=== PATIENT | female | born 1975 | race African-American/Black ===

== ENCOUNTER 2017-04-19 16:27 | Emergency (ER) | payer OTHER ==
[~2017-04-19] VITALS: Ht 160 cm; Wt 44.5 kg
[~2017-04-19 16:27] MED LIST: FLEXERIL PO; IBUPROFEN 800800 M1 PO; IRON325 PO; NAPROSYN500 MG PO; NOHOMEMEDICATIONS; NORCO 5-325 TA1 EACH PO; WOMEN'S DAILY1 EAC1 PO; ZOFRAN ODT4 MG PO
[2017-04-19 17:18] LABS: URINE BILIRUBIN NEGATIVE (Negative); URINE BLOOD TRACE (Negative); URINE COLOR YELLOW; URINE GLUCOSE-RANDOM* NEGATIVE (Negative); URINE KETONES TRACE (Negative); URINE NITRITE NEGATIVE (Negative); URINE PROTEIN (DIPSTICK) NEGATIVE (Negative); URINE SPECIFIC GRAVITY >= 1.030 (1.003-1.035); URINE UROBILINOGEN 0.2 E.U./dl (0.2-1.0)
[2017-04-19 17:27] LABS: HEMATOCRIT 23.8 % (37.0-47.0); HEMOGLOBIN 7.4 gm/dL (12.0-15.0); MANUAL DIFF YES; MCH 20.7 pg (26.0-34.0); MCHC 31.1 g/dL (28.0-37.0); MCV 66.5 fL (80.0-100.0); PLATELET COUNT 213 thou/uL (150-400); RBC 3.58 mil/uL (4.20-5.00); RDW 18.9 % (10.5-14.5); WBC 4.1 thou/uL (4.0-11.0)
[2017-04-19 17:38] LABS: CALCIUM 8.8 mg/dL (8.5-10.1); CREATININE 0.7 mg/dL (0.6-1.0); POTASSIUM 3.5 mmol/L (3.5-5.1)
[2017-04-19 17:44] LABS: ALBUMIN 3.5 g/dL (3.4-5.0); DIRECT BILIRUBIN 0.1 mg/dL (<0.1-0.3); TOTAL BILIRUBIN 0.6 mg/dL (<0.1-1.0); TOTAL PROTEIN 7.7 g/dL (6.4-8.2)
[2017-04-19 18:19] LABS: ABSOLUTE NEUTROPHILS 2.4 thou/uL (1.4-8.2); TOTAL CELL COUNT 100
[2017-04-19 18:20] LABS: ANISOCYTOSIS 2+; HYPOCHROMASIA 3+; MICROCYTES 2+; SCHISTOCYTES FEW
[2017-04-19] MEDS ORDERED: NORCO 5-325 TA1 EACH PO (19:12)
== END 2017-04-19 19:38 | disposition home or self-care (01) ==
LOC: ER 16:27
PROVIDERS: Emergency Medicine
DX: N83.202 Unspecified ovarian cyst, left side (principal); D50.9 Iron deficiency anemia, unspecified; G43.909 Migraine, unspecified, not intractable, without status migrainosus; Z98.890 Other specified postprocedural states

== ENCOUNTER 2021-11-19 01:24 | Emergency (ER) | payer OTHER ==
[~2021-11-19] VITALS: Ht 160 cm; Wt 56.7 kg
[2021-11-19] MEDS ORDERED: PENICILLIN VK500 M1 PO (02:40)
[2021-11-19] MEDS ORDERED: APAP W/CODEINE1 TA2 PO (02:40)
[2021-11-19 04:04] VITALS: BP 138/74
== END 2021-11-19 04:08 | disposition home or self-care (01) ==
LOC: ER 01:24
DX: K04.7 Periapical abscess without sinus (principal); H92.01 Otalgia, right ear; G43.909 Migraine, unspecified, not intractable, without status migrainosus; Z98.890 Other specified postprocedural states; Z90.89 Acquired absence of other organs; Z79.899 Other long term (current) drug therapy